=== PATIENT | female | born 1935 | race Caucasian/White ===

== ENCOUNTER 2016-12-27 14:00 | Inpatient (IN) | payer MEDICARE, OTHER ==
[2016-12-27] MEDS ORDERED: SODIUM CHLORIDE 0.9% 10 ML FLUSH FLUSH PRN (15:51)
--- NOTE | 2016-12-27 15:56 | EDPRACDOC ---
- General Information Information Source: Patient Mode Of Arrival: Car - History of Present Illness Onset: 2 DAYS Exact Onset of Symptoms: Unknown HPI: Pt c/o dizziness and imbalance. Family states pt leans to left when walking. Pt states did take meclizine and valium without improvement. Denies fever, earache , sore throat, congestion, cough, cp, sob, abd pain, n/v, changes in bowel or bladder, rash. Symptoms Started: Reports: Suddenly Symptoms Description: Constant Symptoms: Reports: Imbalance, Vertigo Symptom Severity: Reports: Unable to performs ADL's Relevant History of: Denies: O, Anemia, CVA, DM, Electrolyte disorder, GI Bleed , [place], TIA Associated signs and symptoms:: Reports: None <Stephanie Quintana - Last Filed: 12/27/16 17:27> <Nicko Wolf - Last Filed: 12/27/16 17:51> - General Information Chief Complaint: Generalized Weakness Stated Complaint: DIZZY HEADED Time Seen by Provider: 12/27/16 15:45 Home Medications: Home Medications Aspirin [Aspirin EC] 81 mg PO DAILY 08/04/14 Calcium Carbonate/Vitamin D3 [Calcium 600 + Vit D 200 Tablet] 1 tab PO BID 08/04 Multivitamin [Daily Vitamin] 1 tab PO DAILY 08/04/14 Allergies/Adverse Reactions: Allergies Allergy/AdvReac Type Severity Reaction Status Date / Time No Known Allergies Allergy Verified 12/27/16 14:30 ED Past Medical History - History Reviewed Yes Nurses notes reviewed and agree except as marked - Patient Medical History Cardiac History: Reports: Hypertension (denies at this time) GI/ History: Reports: Gastroesophageal Reflux Musculoskeletal History: Reports: Arthritis Systemic History: Denies: Cancer - Family Medical History Reports: Hypertension, Cancer (aunt-breast ca), Cardiac Disorders - Social Medical History Smoking Status: Never smoker ETOH: None Substance Abuse: None <Stephanie Quintana - Last Filed: 12/27/16 17:27> EDM Review of Systems - Review of Systems Constitutional: No Symptoms Reported. negative: Fever, Chills, Weakness, Fatigue, Loss of Appetite Eyes: No Symptoms Reported. negative: Redness, Blurred Vision, Double Vision, Discharge, Pain, Light Sensitive, Photophobia Ears: No Symptoms Reported. negative: Pain, Hearing Loss, Drainage, Ear Pulling Throat: No Symptoms Reported. negative: Pain, Swelling Nose: No Symptoms Reported. negative: Congestion, Bleeding, Discharge, Injection, Swelling, Deformity, Ecchymosis, Tender, Abrasion, Laceration Mouth: No Symptoms Reported. negative: Pain, Drooling Respiratory: No Symptoms Reported. negative: Cough, Brassy Cough, Barky Cough, Shortness of Breath, Wheezing, Hemoptysis Cardiovascular: No Symptoms Reported. negative: Chest Pain, Palpitations, Syncope, Edema, Orthopnea, PND, Skin Mottling, Cyanosis Gastrointestinal: No Symptoms Reported. negative: Pain, Constipation, Nausea, Vomiting, Diarrhea, Melena, Formula Intolerance Genitourinary: No Symptoms Reported. negative: Dysuria, Hematuria, Frequency, Discharge, Bleeding, Testicular Pain, Neurological: Dizziness, Gait Difficulty Musculoskeletal: No Symptoms Reported. negative: Neck, Chestwall, Ribs, Back, Shoulder, Arm, Elbow, Forearm, Wrist, Hand, Pelvis, Hip, Femur, Knee, Leg, Ankle , Foot Integumentary: No Symptoms Reported. negative: Itching, Rash, Bruising, Wound Allergic/Immunologic: No Symptoms Reported. negative: Hives, Itching Hematologic: No Symptoms Reported. negative: Lymphadenopathy, Easy Bruising, Easy Bleeding Psychiatric: No Symptoms Reported. negative: Anxiety, Depression, Hallucinations, Insomnia, Suicidal <Quintana,Stephanie E - Last Filed: 12/27/16 17:27> - Physical Exam Constitutional: Alert Oriented to: Time, Person, Place Last recorded Vital Signs: Last Vital Signs Temp 97.9 F 12/27/16 14:27 Pulse 83 12/27/16 14:27 Resp 20 12/27/16 14:27 BP 170/78 12/27/16 14:27 Pulse Ox 98 12/27/16 14:27 Oxygen Pulse Oxygen Saturation 98 O2 Device Room Air Oxygen Flow Rate Fraction of Inspired Oxygen ( FIO2) - HEENT Head: Normal ( normocephalic) Eye Exam: Normal (PERRL, EOMI, Sclera white) Oropharynx: Normal (Pharynx:Moist without exudate,Gums-no swelling) Tympanic Membrane: Normal ENT EAC: Normal TMJ: Normal Nose: No Symptoms Reported (septum midline) Neck: Normal (FROM, trachea at midline) - Respiratory/Cardiovascular Respiratory: Normal - CTA (BBS clear to auscultation without adventitious sounds ) Cardiovascular: Normal (RRR without murmur, gallop or rub) - GI Auscultation: Normal (NABS) Palpation: Normal (Soft,No rebound or guarding, non distended) Tenderness: Non tender - Musculoskeletal Back: Normal (Non-Tender) Extremities: Normal (Normal tone, Pulses 2+ No cyanosis or edema, FROM) - Integumentary Skin: Normal, Warm, Dry Lymphatics: Normal (no adenopathy) - Neurologic Memory Impaired: Normal Motor Function: Normal (Normal tone, Pulses 2+ No cyanosis or edema, FROM) Cranial Nerve: Normal (CN II-X11 intact sensation, strength 5/5) Cerebellar: Ataxia Mood Description: Normal Thought: Coherent Perception: Normal <Stephanie Quintana - Last Filed: 12/27/16 17:27> - Physical Exam Last recorded Vital Signs: Last Vital Signs Temp 97.9 F 12/27/16 14:27 Pulse 80 12/27/16 16:44 Resp 20 12/27/16 16:44 BP 161/72 12/27/16 16:44 Pulse Ox 97 12/27/16 16:44 Oxygen Pulse Oxygen Saturation 97 O2 Device Room Air Oxygen Flow Rate Fraction of Inspired Oxygen ( FIO2) <Nicko Wolf - Last Filed: 12/27/16 17:51> NIH Stroke Scale Initial Evaluation Level of Consciousness: Alert LOC- Question: Answers Both Correctly LOC Commands: Both Task Correctly Best Gaze: Normal Visual: No Visual Loss Facial Palsy: Normal Movement Motor Arm LEFT: No Drift Motor Arm RIGHT: No Drift Motor Leg LEFT: No Drift Motor Leg RIGHT: No Drift Limb Ataxia: Present in One Limb Sensory: Normal Best Language: No Aphasia Dysarthria: Normal Extinction and Inattention: No Abnormality (Neglect) Score: 1out of42 <Stephanie Quintana - Last Filed: 12/27/16 17:27> - Differential Diagnosis CVA, Dehydration, Dysrhythmia, Electrolyte disorder, TIA, Vertigo - Results 12/27/16 15:55 12/27/16 15:55 12/27/16 16:58 Laboratory Results - last 24 hr 12/27/16 12/27/16 12/27/16 15:55 15:55 15:55 WBC 5.8 RBC 4.10 L Hgb 12.5 Hct 37.5 MCV 92 MCH 30.6 MCHC 33.4 RDW 13.3 Plt Count 285 MPV 7.9 Neut % (Auto) 62.1 Lymph % (Auto) 23.9 [place] % (Auto) 11.7 H Eos % (Auto) 1.7 Baso % (Auto) 0.6 Absolute Neuts (auto) 3.60 Absolute Lymphs (auto) 1.33 PT 10.8 INR 1.1 APTT 26.7 Sodium 144 Potassium 4.0 Chloride 107 Carbon Dioxide 25 Anion Gap 16 BUN 18 H Creatinine 0.70 Estimated GFR (MDRD) > 60 Glucose 113 H Calculated Osmolality 280 Calcium 8.9 Total Bilirubin 0.4 AST 26 ALT 29 Alkaline Phosphatase 76 Troponin I < 0.01 Total Protein 7.3 Albumin 4.2 - EKG EKG #1 EKG Time: 16:54 Rate: bpm: 73 [place]: Normal Rhythm: NSR Block: None ST: Normal Comparison: 08/12/14 (no significant change) - Diagnostic Imaging Head Image interpreted by: Radiologist IMPRESSION: 1. No acute intracranial abnormality. 2. Bilateral lacunar infarcts in the basal ganglia. 3. Atrophy with chronic small vessel white matter ischemic demyelination. Chest Image interpreted by: Radiologist IMPRESSION: No active disease. <Stephanie Quintana E - Last Filed: 12/27/16 17:27> - Re-evaluation Re-evaluation 1 Re-evaluation Time: 17:47 (PATIENT HAS MILD ATAXIA LEFT LEG) - Results 12/27/16 15:55 12/27/16 15:55 WBC 5.8 xk/uL (3.8-10.8) 12/27/16 15:55 RBC 4.10 xM/uL (4.20-5.40) L 12/27/16 15:55 Hgb 12.5 g/dL (12.0-16.0) 12/27/16 15:55 Hct 37.5 % (36-47) 12/27/16 15:55 MCV 92 fL (81-99) 12/27/16 15:55 MCH 30.6 pg (27-32) 12/27/16 15:55 MCHC 33.4 g/dl (33-36) 12/27/16 15:55 RDW 13.3 % (11.5-14.5) 12/27/16 15:55 Plt Count 285 xk/uL (130-400) 12/27/16 15:55 MPV 7.9 fL (7.4-10.4) 12/27/16 15:55 Neut % (Auto) 62.1 % (45-76) 12/27/16 15:55 Lymph % (Auto) 23.9 % (17-44) 12/27/16 15:55 [place] % (Auto) 11.7 % (3-10) H 12/27/16 15:55 Eos % (Auto) 1.7 % (0-5) 12/27/16 15:55 Baso % (Auto) 0.6 % (0-2) 12/27/16 15:55 Absolute Neuts (auto) 3.60 xk/uL (1.7-8.2) 12/27/16 15:55 Absolute Lymphs (auto) 1.33 xk/uL (0.65-4.75) 12/27/16 15:55 PT 10.8 SEC (9.2-11.2) 12/27/16 15:55 INR 1.1 12/27/16 15:55 APTT 26.7 SEC (22-35) 12/27/16 15:55 Sodium 144 mEq/L (137-146) 12/27/16 15:55 Potassium 4.0 mEq/L (3.5-5.1) 12/27/16 15:55 Chloride 107 mEq/L (98-107) 12/27/16 15:55 Carbon Dioxide 25 mMOL/L (22-33) 12/27/16 15:55 Anion Gap 16 mEq/L (8-16) 12/27/16 15:55 BUN 18 MG/DL (7-17) H 12/27/16 15:55 Creatinine 0.70 MG/DL (0.52-1.04) 12/27/16 15:55 Estimated GFR (MDRD) > 60 mL/min (>=60) 12/27/16 15:55 Glucose 113 MG/DL (70-99) H 12/27/16 15:55 Calculated Osmolality 280 MOs/Kg (270-290) 12/27/16 15:55 Calcium 8.9 MG/DL (8.4-10.2) 12/27/16 15:55 Total Bilirubin 0.4 MG/DL (0.2-1.3) 12/27/16 15:55 AST 26 IU/L (14-36) 12/27/16 15:55 ALT 29 IU/L (9-52) 12/27/16 15:55 Alkaline Phosphatase 76 IU/L (55-165) 12/27/16 15:55 Troponin I < 0.01 ng/mL (<.04) 12/27/16 15:55 Total Protein 7.3 G/DL (6.3-8.2) 12/27/16 15:55 Albumin 4.2 G/DL (3.5-5.0) 12/27/16 15:55 Lab Results 12/27/16 12/27/16 12/27/16 15:55 15:55 15:55 WBC 5.8 RBC 4.10 L Hgb 12.5 Hct 37.5 MCV 92 MCH 30.6 MCHC 33.4 RDW 13.3 Plt Count 285 MPV 7.9 Neut % (Auto) 62.1 Lymph % (Auto) 23.9 [place] % (Auto) 11.7 H Eos % (Auto) 1.7 Baso % (Auto) 0.6 Absolute Neuts (auto) 3.60 Absolute Lymphs (auto) 1.33 PT 10.8 INR 1.1 APTT 26.7 Sodium 144 Potassium 4.0 Chloride 107 Carbon Dioxide 25 Anion Gap 16 BUN 18 H Creatinine 0.70 Estimated GFR (MDRD) > 60 Glucose 113 H Calculated Osmolality 280 Calcium 8.9 Total Bilirubin 0.4 AST 26 ALT 29 Alkaline Phosphatase 76 Troponin I < 0.01 Total Protein 7.3 Albumin 4.2 <Nicko Wolf - Last Filed: 12/27/16 17:51> <Stephanie Quintana - Last Filed: 12/27/16 17:27> - Departure Yes I personally saw and evaluated the patient. Disposition: Admit IP To This Hospital Education/Counseling Given To: Patient Education/Counseling Given Regarding: Diagnosis, Treatment, Prognosis Decision to Admit Time: 17:50 Decision to admit date: 12/27/16 Decision to admit: from ED - Physician Consulted Neurology Time Called: 17:51 Provider Called: DR. White ([facility]) Time Rn Internship Returned Call: 17:51 <Wolf,Nicko - Last Filed: 12/27/16 17:51> - Departure Condition: Stable Final Diagnosis: Acute CVA (cerebrovascular accident), Ataxia Instructions: Weakness (General) Referrals: Ravi Parker MD [Primary Care Provider] - One Week Prescriptions: No Action Multivitamin [Daily Vitamin] 1 tab PO DAILY Calcium Carbonate/Vitamin D3 [Calcium 600 + Vit D 200 Tablet] 1 tab PO BID Aspirin [Aspirin EC] 81 mg PO DAILY
[2016-12-27 16:06] LABS: AUTOMATED BASOPHIL 0.6 % (0-2); AUTOMATED EOSINOPHIL 1.7 % (0-5); AUTOMATED LYMPH 23.9 % (17-44); AUTOMATED MONOCYTE 11.7 % (3-10); AUTOMATED NEUTROPHIL 62.1 % (45-76); MPV 7.9 fL (7.4-10.4)
[2016-12-27 16:18] LABS: BLOOD UREA NITROGEN 18 MG/DL (7-17); CALCIUM 8.9 MG/DL (8.4-10.2); CALCULATED OSMOLALITY 280 MOs/Kg (270-290); CHLORIDE 107 mEq/L (98-107); GLUCOSE 113 MG/DL (70-99); SODIUM LEVEL 144 mEq/L (137-146); TOTAL PROTEIN 7.3 G/DL (6.3-8.2)
[2016-12-27 16:20] LABS: PARTIAL THROMB. TIME 26.7 SEC (22-35); PT-INR 1.1
--- NOTE | 2016-12-27 16:41 | DIRPT ---
CLINICAL DATA: Two day history of dizziness and blurry vision. EXAM: CT HEAD WITHOUT CONTRAST TECHNIQUE: Contiguous axial images were obtained from the base of the skull through the vertex without intravenous contrast. COMPARISON: None. FINDINGS: There is no evidence for acute hemorrhage, hydrocephalus, mass lesion, or abnormal extra-axial fluid collection. No definite CT evidence for acute infarction. Diffuse loss of parenchymal volume is consistent with atrophy. Lacunar infarcts identified in the basal ganglia bilaterally. Patchy low attenuation in the deep hemispheric and periventricular white matter is nonspecific, but likely reflects chronic microvascular ischemic demyelination. The visualized paranasal sinuses and mastoid air cells are clear. IMPRESSION: 1. No acute intracranial abnormality. 2. Bilateral lacunar infarcts in the basal ganglia. 3. Atrophy with chronic small vessel white matter ischemic demyelination. Electronically Signed By: Wesly Ronquillo M.D. On: 12/27/2016 16:38
--- NOTE | 2016-12-27 16:58 | DIRPT ---
CLINICAL DATA: Dizziness beginning last night. EXAM: PORTABLE CHEST 1 VIEW COMPARISON: 08/12/2014 FINDINGS: Artifact overlies chest. Heart size is normal. Mediastinal shadows are normal. There is mild scarring at the lung bases. No evidence of infiltrate, mass, effusion or collapse. No significant bone finding. IMPRESSION: No active disease. Electronically Signed By: Aleks Rodriguez M.D. On: 12/27/2016 16:56
--- NOTE | 2016-12-27 18:31 | HISTPHYS ---
- Chief Complaint dizzy, leaning to left side, difficulty walking - History of Present Illness PRIMARY CARE PROVIDER: Dr. Parker HPI: The patient is a delightful and remarkably healthy 81 yo woman who presents with difficulty walking. Yesterday she felt lightheaded and dizzy, and it continued to today. She took one of her 's pills but it did not help. She noticed that she kept leaning to the left side. Sh could not walk right; it was a balance problem. If she turned her head quickly she felt more dizzy. Her daughter said the patient would start walking then suddenly lean to the side the left side. Onset: yesterday. Duration: intermittent. Location: left side. Radiation: none. Character: balance disorder and leaning to left. Alleviated by: Nothing. Exacerbated by: Nothing. Associated Symptoms: No headache, numbness, or weakness. No slurred speech or confusion. No eye complaints. No difficulty swallowing. Treatments: none at home except usual medications. She took meclizine x1 and lorazepam x 1 of her 's. - Medical History GI/ History: Reports: Gastroesophageal Reflux Musculoskeletal History: Reports: Arthritis Reports: claustrophobic. - Surgical History Reports: Other (2 knee replacements. Left carpal tunnel.) - Medictions/Allergies Allergies No Known Allergies Allergy (Verified 12/27/16 14:30) PER KATIA IN [facility] [place], [place] Current Medication List: Reviewed Home Medications Aspirin [Aspirin EC] 81 mg PO DAILY 08/04/14 Calcium Carbonate/Vitamin D3 [Calcium 600 + Vit D 200 Tablet] 1 tab PO BID 08/04 Multivitamin [Daily Vitamin] 1 tab PO DAILY 08/04/14 - Family History Reports: Hypertension, Diabetes (Mild DM in mother.), Cancer (Aunt-breast ca), Cardiac Disorders (Mother: SC and CHF but lived to 95yo. Father: aortic aneurysm rupture @70yo) - Social History Lives: with Spouse Smoking Status: Never smoker Social History: Denies: Alcohol Use, Substance Use Disorder - Review of Systems GENERAL: No Fever, chills, or diaphoresis. Positive for fatigue/malaise. HEENT: No ear pain or discharge. No nasal discharge or bleeding. No throat pain or swelling. No eye pain or eye redness. RESPIRATORY: No cough, wheezing, or shortness of breath. CARDIOVASCULAR: No chest pain or palpitations. GI: No abdominal pain, nausea, vomiting, diarrhea, constipation, or bloody stool. NEUROLOGICAL: No headache or focal weakness. INTEGUMENT: no rashes, itching, or lesions. LYMPHATIC SYSTEM: no lymph node swelling or pain. MUSCULOSKELETAL: no pain or joint swelling. GENITOURINARY: No dysuria or hematuria. ENDOCRINE: No polyuria or polydipsia. HEME: No chronic anemia, bleeding, or easy bruising. - Physical Exam Vital Signs: Initial Vitals Temperature 97.9 F 12/27/16 14:27 Pulse Rate 83 12/27/16 14:27 Respiratory Rate 20 12/27/16 14:27 Blood Pressure 170/78 12/27/16 14:27 Pulse Oxygen Saturation 98 12/27/16 14:27 Vital Signs - 24 hr 12/27/16 12/27/16 12/27/16 14:27 15:22 15:43 Temperature 97.9 F Pulse Rate 83 71 80 Respiratory 20 20 20 Rate Blood Pressure 170/78 138/83 138/70 Pulse Oxygen 98 97 97 Saturation 12/27/16 16:44 Temperature Pulse Rate 80 Respiratory 20 Rate Blood Pressure 161/72 Pulse Oxygen 97 Saturation Weight: 61.7 kg Height: 5 feet 4 inches BMI: 23.3 - Other Exam Other Exam Findings: GENERAL: Mildly ill-appearing, well nourished, no acute distress. HEENT: Normocephalic, atraumatic; pupils equal and round. Nares patent, without discharge or bleeding. No oropharyngeal lesions or erythema. Mucous membranes are dry. NECK: is supple, no masses, trachea midline. RESPIRATORY: Clear to auscultation bilaterally. Chest wall movements are symmetric. No use of accessory muscles to breathe. No wheezing, rales, rhonchi. CARDIOVASCULAR: Normal S1, S2. No murmurs, rubs, or gallops. PMI non-displaced. Carotids: no carotid bruits. No bradycardia or tachycardia. DP pulses 2+ bilaterally. GI: soft, nontender, non-distended, normal active bowel sounds. No hepatosplenomegaly. INTEGUMENT: Clean, dry, and intact. No rashes. No lesions. MUSCULOSKELETAL: Moving all extremities. No cyanosis. No clubbing. Edema: none bilaterally. NEUROLOGICAL: Cranial nerves 2-12 grossly intact. Motor 5/5 throughout. Reflexes : 2+ bilaterally. Babinski: toes downgoing bilaterally. Intact Finger to nose. Sensory grossly intact to light touch. Intact rapid alternating movements bilaterally. No pronator drift. Negative Romberg. Observed patient walking: minimal unsteadiness. PSYCHIATRIC: Fully oriented. Normal and appropriate affect. LYMPHATIC: No cervical lymphadenopathy. No supraclavicular lymphadenopathy. - Lab Results Laboratory Results - last 24 hr 12/27/16 12/27/16 12/27/16 15:55 15:55 15:55 WBC 5.8 RBC 4.10 L Hgb 12.5 Hct 37.5 MCV 92 MCH 30.6 MCHC 33.4 RDW 13.3 Plt Count 285 MPV 7.9 Neut % (Auto) 62.1 Lymph % (Auto) 23.9 [place] % (Auto) 11.7 H Eos % (Auto) 1.7 Baso % (Auto) 0.6 Absolute Neuts (auto) 3.60 Absolute Lymphs (auto) 1.33 PT 10.8 INR 1.1 APTT 26.7 Sodium 144 Potassium 4.0 Chloride 107 Carbon Dioxide 25 Anion Gap 16 BUN 18 H Creatinine 0.70 Estimated GFR (MDRD) > 60 Glucose 113 H Calculated Osmolality 280 Calcium 8.9 Total Bilirubin 0.4 AST 26 ALT 29 Alkaline Phosphatase 76 Troponin I < 0.01 Total Protein 7.3 Albumin 4.2 - Diagnostic Findings EK bpm. Normal sinus rhythm. Reviewed EKG personally. Chest x-ray, viewed personally: EXAM: PORTABLE CHEST 1 VIEW COMPARISON: 08/12/2014 FINDINGS: Artifact overlies chest. Heart size is normal. Mediastinal shadows are normal. There is mild scarring at the lung bases. No evidence of infiltrate, mass, effusion or collapse. No significant bone finding. IMPRESSION: No active disease. Head CT: EXAM: CT HEAD WITHOUT CONTRAST TECHNIQUE: Contiguous axial images were obtained from the base of the skull through the vertex without intravenous contrast. COMPARISON: None. FINDINGS: There is no evidence for acute hemorrhage, hydrocephalus, mass lesion, or abnormal extra-axial fluid collection. No definite CT evidence for acute infarction. Diffuse loss of parenchymal volume is consistent with atrophy. Lacunar infarcts identified in the basal ganglia bilaterally. Patchy low attenuation in the deep hemispheric and periventricular white matter is nonspecific, but likely reflects chronic microvascular ischemic demyelination. The visualized paranasal sinuses and mastoid air cells are clear. IMPRESSION: 1. No acute intracranial abnormality. 2. Bilateral lacunar infarcts in the basal ganglia. 3. Atrophy with chronic small vessel white matter ischemic demyelination. - Assessment (1) Acute CVA (cerebrovascular accident) I63.9 - CEREBRAL INFARCTION, UNSPECIFIED Acute Present on Admission: Yes Plan: CVA order set. MRI head and Ultrasound of carotids in the AM. NPO until speech therapy evaluation. Physical therapy and occupational therapy evaluations. Neuro checks q 4 hours. Telemetry. Patient was taking daily aspirin, so will change to Plavix in the AM. Add statin. Check lipid levels. NOTE: TPA NOT GIVEN. NO TPA DUE TO: Patient outside of time window. (2) Ataxia R27.0 - ATAXIA, UNSPECIFIED Acute Present on Admission: Yes May be due to CVA. Plan: Neuro checks. PT eval and treat. (3) Elevated blood pressure reading R03.0 - ELEVATED BLOOD-PRESSURE READING, W/O DIAGNOSIS OF HTN Acute Present on Admission: Yes May be acute and related to CVA. Could also be chronic with patient unaware she had hypertension. Plan: Due to acute CVA, will not treat BP unless SBP is greater than 190 during initial phase. Follow-up as an outpatient for blood pressure rechecks. Would consider adding antihypertensives at that time. (4) Dizziness R42 - DIZZINESS AND GIDDINESS Acute Present on Admission: Yes May be due to CVA. If not, consider other causes. Plan: CVA workup. Meclizine prn. NIH Stroke Scale Initial Evaluation Level of Consciousness: Alert LOC- Question: Answers Both Correctly LOC Commands: Both Task Correctly Best Gaze: Normal Visual: No Visual Loss Facial Palsy: Normal Movement Motor Arm LEFT: No Drift Motor Arm RIGHT: No Drift Motor Leg LEFT: No Drift Motor Leg RIGHT: No Drift Limb Ataxia: Present in One Limb (Left Leg, mild) Sensory: Normal Best Language: No Aphasia Dysarthria: Normal Extinction and Inattention: No Abnormality (Neglect) Score: 1out of42
[2016-12-27] MEDS ORDERED: SENNA CONCENTRATE TAB PO PRN (20:40)
[2016-12-27] MEDS ORDERED: ONDANSETRON HCL 4 MG/2 ML VIAL IV PRN (20:40)
[2016-12-27] MEDS ORDERED: TEMAZEPAM 15 MG CAP PO PRN (20:40)
[2016-12-27] MEDS ORDERED: BENZONATATE 100 MG PERLES PO PRN (20:40)
[2016-12-27] MEDS ORDERED: Aluminum;Magnesium;Simethicone 30 ML UDC PO PRN (20:40)
[2016-12-27] MEDS ORDERED: PROMETHAZINE 25 MG/ML VIAL IV PRN (20:40)
[2016-12-27] MEDS ORDERED: BISACODYL 5 MG TAB PO PRN (20:40)
[2016-12-27] MEDS ORDERED: ACETAMINOPHEN 325 MG SUPP PR PRN (20:40)
[2016-12-27] MEDS ORDERED: GUAIFEN 100 MG-DEXTROMETH 10 MG PER 5 ML PO PRN (20:40)
[2016-12-27] MEDS ORDERED: ACETAMINOPHEN 325 MG/TAB TABLET PO PRN (20:40)
[2016-12-27] MEDS ORDERED: LORAZEPAM 2 MG/ML VIAL IV PRN (20:49)
[2016-12-27] MEDS ORDERED: Vaccine Screening Complete SCH (21:00)
[2016-12-27] MEDS: ATORVASTATIN 40 MG TAB PO SCH (21:04)
[2016-12-27] MEDS: ENOXAPARIN 40 MG/0.4 ML PFS SQ SCH (21:23)
[2016-12-27] MEDS: NS 1,000 ML IV SCH (21:23)
[2016-12-28 04:21] VITALS: BMI 22.8
[2016-12-28 04:55] LABS: MPV 8.1 fL (7.4-10.4)
[2016-12-28] MEDS ORDERED: DOCUSATE SODIUM 50 MG PO SCH (09:00)
[2016-12-28] MEDS ORDERED: MULTIVITAMIN PO SCH (09:00)
[2016-12-28] MEDS ORDERED: MECLIZINE 12.5 MG TAB PO PRN (10:00)
[2016-12-28] MEDS ORDERED: [UNRECOGNIZED DRUG - OTHER] PO SCH (10:00)
[2016-12-28] MEDS ORDERED: VITAMIN D3 PO SCH (10:00)
[2016-12-28] MEDS ORDERED: CALCIUM CARBONATE PO SCH (10:00)
[2016-12-28] MEDS: Docusate Sodium 100 MG CAP PO SCH (10:31)
[2016-12-28] MEDS: CLOPIDOGREL 75 MG TAB PO SCH (10:31)
[2016-12-28] MEDS: CALCIUM CARBONATE + VITAMIN D 500 MG TAB PO SCH ×2 (10:31→20:41)
[2016-12-28] MEDS: VITAMINS, MULTIPLE CAP PO SCH (10:31)
[2016-12-28] MEDS: NS 1,000 ML IV SCH (10:32)
--- NOTE | 2016-12-28 12:06 | DIRPT ---
ADDENDUM REPORT: 12/28/2016 16:13 ADDENDUM: These results were discussed by telephone with Dr. Lewis on 12/28/2016 at 3:00 p.m. Electronically Signed By: Tae Martínez M.D. On: 12/28/2016 16:13 CLINICAL DATA: Ischemic stroke. Dizziness beginning 2 days ago. EXAM: MRI HEAD WITHOUT AND WITH CONTRAST TECHNIQUE: Multiplanar, multiecho pulse sequences of the brain and surrounding structures were obtained without and with intravenous contrast. CONTRAST: 10 mL MultiHance COMPARISON: Head CT 12/27/2016 FINDINGS: The pituitary gland is mildly enlarged for age, measuring 8-9 mm in height. There is mild slumping of the brainstem without cerebellar tonsillar herniation. Trace bilateral subdural fluid effusions and diffuse smooth pachymeningeal enhancement are present both supratentorially and infratentorially. There is mild distension/rounding of the contour of the right transverse sinus. There is no evidence of acute infarct, intracranial hemorrhage, mass, or midline shift. Ventricles and sulci are within normal limits for age. Patchy T2 hyperintensities in the subcortical and deep cerebral white matter and rashawn are nonspecific but compatible with moderate chronic small vessel ischemic disease. A subcentimeter T2 hyperintense focus at the inferior left basal ganglia may represent a dilated perivascular space or less likely chronic lacunar infarct. No abnormal brain parenchymal enhancement is identified. Orbits are unremarkable. Paranasal sinuses and mastoid air cells are clear. Major intracranial vascular flow voids are preserved. IMPRESSION: 1. Overall constellation of findings highly suggestive of intracranial hypotension. Suggest correlation with LP opening pressure. 2. No acute infarct or mass. 3. Moderate chronic small vessel ischemic disease. Electronically Signed: By: Tae Martínez M.D. On: 12/28/2016 12:04
--- NOTE | 2016-12-28 12:49 | DIRPT ---
CLINICAL DATA: 81-year-old female with stroke-like symptoms (dizziness, blurred vision). EXAM: BILATERAL CAROTID DUPLEX ULTRASOUND TECHNIQUE: Bray scale imaging, color Doppler and duplex ultrasound were performed of bilateral carotid and vertebral arteries in the neck. COMPARISON: Brain MRI 12/28/2016; Prior thyroid ultrasound 05/02/2015 FINDINGS: Criteria: Quantification of carotid stenosis is based on velocity parameters that correlate the residual internal carotid diameter with NASCET-based stenosis levels, using the diameter of the distal internal carotid lumen as the denominator for stenosis measurement. The following velocity measurements were obtained: RIGHT ICA: 94/32 cm/sec CCA: 73/23 cm/sec SYSTOLIC ICA/CCA RATIO: 1.3 DIASTOLIC ICA/CCA RATIO: 1.4 ECA: 84 cm/sec LEFT ICA: 91/30 cm/sec CCA: 79/23 cm/sec SYSTOLIC ICA/CCA RATIO: 1.2 DIASTOLIC ICA/CCA RATIO: 1.3 ECA: 69 cm/sec RIGHT CAROTID ARTERY: No evidence of significant atherosclerotic plaque or stenosis. RIGHT VERTEBRAL ARTERY: Patent with normal antegrade flow. LEFT CAROTID ARTERY: No focal stenosis scratch then no significant atherosclerotic plaque or evidence of stenosis. LEFT VERTEBRAL ARTERY: Patent with normal antegrade flow. IMPRESSION: Negative bilateral carotid duplex ultrasound. Signed, Jewel Hernandez MD [facility] Electronically Signed By: Jewel Hernandez M.D. On: 12/28/2016 12:46
[2016-12-28] MEDS: ENOXAPARIN 40 MG/0.4 ML PFS SQ SCH (16:16)
[2016-12-28] MEDS: ATORVASTATIN 40 MG TAB PO SCH (16:16)
--- NOTE | 2016-12-28 16:41 | GENMEDPROG ---
Chief Complaint: Feels a little better today. Still some dizziness and generalized weakness. Notes Reviewed: Yes Events from last night noted and discussed with Clinical Staff Current Medication List: Reviewed Currently: Denies: Cough, Wheezing, SCHWAB, SOB, Sputum, Nausea and Vomiting, Abdominal Pain - Physical Examination Vital Signs and I&O: Last Vital Signs Temp 97.7 F 12/28/16 16:13 Pulse 80 12/28/16 16:13 Resp 18 12/28/16 16:13 BP 131/67 12/28/16 16:13 Pulse Ox 96 12/28/16 16:13 Oxygen Pulse Oxygen Saturation 96 O2 Device Room Air Oxygen Flow Rate Fraction of Inspired Oxygen ( FIO2) Intake & Output 12/25/16 12/26/16 12/27/16 12/28/16 23:59 23:59 23:59 23:59 Intake Total 1786 Output Total 1500 Balance 286 Patient's weight 60.509 kg General: Alert, Oriented x3, Cooperative, No acute distress, Well appearing, Well nourished HEENT: Normal, PERRLA, EOMI, Anicteric Sclera Neck: Non-tender, Full range of motion. negative: JVD Lymphatics: Normal (no adenopathy) Respiratory: Normal - CTA (BBS clear to auscultation without adventitious sounds ) Cardiovascular: Regular rate and rhythm, No Gallops,Rubs/Murmurs GI: Normal bowel sounds, Soft, Non tender, No hepatospenomegaly Extremities/Musculoskeletal: Normal pulses. negative: Tenderness, Swelling, Edema Skin: Warm,Dry and Intact, No rashes, No breakdown Neurological: Normal speech, Strength at 5/5 X4 ext, Normal tone, Cranial nerves 3-12 NL Psych/Mental Status: Appropriate, Normal Affect, Cooperative Lab/DI/Studies Reviewed: Laboratory Results - last 24 hr 12/27/16 12/27/16 12/28/16 19:20 21:40 04:25 WBC 5.5 RBC 3.78 L Hgb 11.7 L Hct 34.6 L MCV 92 MCH 31.0 MCHC 33.9 RDW 13.7 Plt Count 276 MPV 8.1 Troponin I < 0.01 < 0.01 - Assessment (1) Acute CVA (cerebrovascular accident) Acute I63.9 - CEREBRAL INFARCTION, UNSPECIFIED Comment/Plan: MRI with no clear evidence of stroke. However constellation of findings on MRI are consistent with intracranial hypotension. She has not had any recent instrumentation of her back though she did have what sounds like an epidural injection in September of 2015. Discussed with Radiology and recommendation is for LP however patient is currently on aspirin, Plavix and Lovenox and would not be able to get LP for 5 days. Have asked Neurology to see in consultation for further recommendations of evaluation and management (2) Ataxia Acute R27.0 - ATAXIA, UNSPECIFIED Comment/Plan: As above. Physical therapy and supportive care. (3) Dizziness Acute R42 - DIZZINESS AND GIDDINESS Comment/Plan: She took some of her 's meclizine with little relief of symptoms. Suspect due to above issues. Have asked Neurology to see in consultation (4) Elevated blood pressure reading Acute R03.0 - ELEVATED BLOOD-PRESSURE READING, W/O DIAGNOSIS OF HTN Comment/ Plan: Blood pressure is stable this afternoon. Continue to monitor. Case Care Discussed with: Patient, Family, Nursing Staff, Physical Therapy, Resource Management
--- NOTE | 2016-12-28 22:53 | PCM.NEUCO ---
Consultation Date: 12/28/16 Requesting Physician: Racquel Ramey Consulting Doctor: Ronaldo Lewis Reason For Consult: Other-specify below (Dizziness, Ataxia) 81 y.o. female admitted on 12/27/16 with c/o dizziness and balance difficulty. Patient reports having a sudden onset of dizziness on 12/26/16. She describes the dizziness as a spinning sensation. The dizziness only occurred with standing. It would resolve with rest/sitting. She had difficulty ambulating due to the dizziness. She denies having any associated headache, nausea, tinnitus, hearing loss, or ear pain. She took some of her spouse's Meclizine and Valium but neither helped. Yesterday her daughter insisted that she come to the ED for evaluation. A CT of her head was negative for any acute findings. [employer] PERSON she took a low dose ASA daily. Plavix was added yesterday. Today a MRI of her brain showed findings highly suggestive of intracranial hypotension. It was suggested by radiology to have a LP. Unfortunately patient is unable to have LP for 5 days due to Plavix and Lovenox. Today patient denies having any dizziness except with ambulation. Per physical therapy evaluation patient did not have any nystagmus or dizziness related to head movement or position change. - Past Medical and Surgical History Cardiac History: Denies: Hypertension (denies at this time) GI/ History: Reports: Gastroesophageal Reflux Systemic History: Denies: Cancer Musculoskeletal History: Reports: Arthritis Psychological History: Denies: Depression, Alcoholism, Substance Use Disorder Neurological History: Reports: Cerebrovascular Accident (OLD CVA NOTED ON CT) Past Surgical History: Reports: Other (2 knee replacements. Left carpal tunnel.) . Denies: Tonsillectomy/Adnoidectomy Allergies No Known Allergies Allergy (Verified 12/27/16 14:30) PER KATIA IN [facility] [place] Home Medications Aspirin [Aspirin EC] 81 mg PO DAILY 08/04/14 Calcium Carbonate/Vitamin D3 [Calcium 600 + Vit D 200 Tablet] 1 tab PO BID 08/04 Multivitamin [Daily Vitamin] 1 tab PO DAILY 08/04/14 Docusate Sodium [Stool Softener] 50 mg PO DAILY 12/27/16 - Social History Travel Outside of [place] in the Last 3 Months?: No Lives: with Spouse Smoking Status: Never smoker Social History: Denies: Alcohol Use, Substance Use Disorder - Family History Reports: Hypertension, Diabetes (Mild DM in mother.), Cancer (Aunt-breast ca), Stroke (AUNT), Cardiac Disorders (Mother: PA and CHF but lived to 95yo. Father: aortic aneurysm rupture @70yo) - Review of Systems Constitutional: No Symptoms Reported (Negative for weakness) Eyes: No Symptoms Reported (Negative for visual changes), Uses Glasses/Contact lenses Ears: No Symptoms Reported Throat/Neck: No Symptoms Reported (Denies neck pain) Cardiovascular: No Symptoms Reported (Denies CP) Gastrointestinal: No Symptoms Reported (Denies nausea) Genitourinary: No Symptoms Reported (Negative for urinary complaints) Neurological: Dizziness, Gait Difficulty Musculoskeletal:: No Symptoms Reported (Denies current back pain) Integumentary: No Symptoms Reported (Negative for bruising) Psychiatric: No Symptoms Reported (Negative for sleeping difficulty) - Physical Exam Vital Signs: Initial Vitals Temperature 97.9 F 12/27/16 14:27 Pulse Rate 83 12/27/16 14:27 Respiratory Rate 20 12/27/16 14:27 Blood Pressure 170/78 12/27/16 14:27 Pulse Oxygen Saturation 98 12/27/16 14:27 Selected Entries 12/28/16 20:00 Temperature 98.2 F Pulse Rate 79 Respiratory 18 Rate Blood Pressure 133/63 Constitutional: No apparent distress, Alert Oriented to: Time, Person, Place - HEENT Head: Normal - Integumentary Skin: Normal - Mental Status Orientation: Time, Person, Place Speech: Fluent Coginitive: Normal Motor Function: Normal (Strength 5/5 in BUE/BLE) Affect: Normal Thought: Coherent Perception: Normal - Sensory Sensory: Normal (Intact to light touch and pain in all extremities) - Reflex Babinski Reflex Response: Absent Bilateral Reflexes: Absent 0: Left Patellar, Right Patellar, Left Achilles, Right Achilles , Diminished 1+: Right Bicep, Left Bicep, Left Tricep, Right Tricep, Left Brachioradialis, Right Brachioradialis - Coordination Finger to Nose Test: Normal Performance Hand Tapping Test: Normal Performance - Other Exam Other Exam Findings: CN II-XII: Equal pupil size and reaction. Fundi not visualized. EOMI with no nystagmus. VF full to confrontation. Hearing appears normal. Normal facial strength and sensation. Normal shoulder shrug and tongue protrusion. MIRIAM with no nystagmus. - Lab Results Laboratory Tests 12/27/16 12/27/16 12/28/16 15:55 15:55 04:25 WBC 5.5 Hgb 11.7 L Hct 34.6 L PT 10.8 INR 1.1 APTT 26.7 Sodium 144 Potassium 4.0 BUN 18 H Creatinine 0.70 Glucose 113 H - Diagnostic Findings EXAM: CT HEAD WITHOUT CONTRAST COMPARISON: None. FINDINGS: There is no evidence for acute hemorrhage, hydrocephalus, mass lesion, or abnormal extra-axial fluid collection. No definite CT evidence for acute infarction. Diffuse loss of parenchymal volume is consistent with atrophy. Lacunar infarcts identified in the basal ganglia bilaterally. Patchy low attenuation in the deep hemispheric and periventricular white matter is nonspecific, but likely reflects chronic microvascular ischemic demyelination. The visualized paranasal sinuses and mastoid air cells are clear. IMPRESSION: 1. No acute intracranial abnormality. 2. Bilateral lacunar infarcts in the basal ganglia. 3. Atrophy with chronic small vessel white matter ischemic demyelination. EXAM: MRI HEAD WITHOUT AND WITH CONTRAST COMPARISON: Head CT 12/27/2016 FINDINGS: The pituitary gland is mildly enlarged for age, measuring 8-9 mm in height. There is mild slumping of the brainstem without cerebellar tonsillar herniation. Trace bilateral subdural fluid effusions and diffuse smooth pachymeningeal enhancement are present both supratentorially and infratentorially. There is mild distension/rounding of the contour of the right transverse sinus. There is no evidence of acute infarct, intracranial hemorrhage, mass, or midline shift. Ventricles and sulci are within normal limits for age. Patchy T2 hyperintensities in the subcortical and deep cerebral white matter and rashawn are nonspecific but compatible with moderate chronic small vessel ischemic disease. A subcentimeter T2 hyperintense focus at the inferior left basal ganglia may represent a dilated perivascular space or less likely chronic lacunar infarct. No abnormal brain parenchymal enhancement is identified. Orbits are unremarkable. Paranasal sinuses and mastoid air cells are clear. Major intracranial vascular flow voids are preserved. IMPRESSION: 1. Overall constellation of findings highly suggestive of intracranial hypotension. Suggest correlation with LP opening pressure. 2. No acute infarct or mass. 3. Moderate chronic small vessel ischemic disease. EXAM: BILATERAL CAROTID DUPLEX ULTRASOUND IMPRESSION: Negative bilateral carotid duplex ultrasound. - Assessment/Plan (1) Dizziness R42 - DIZZINESS AND GIDDINESS Acute Present on Admission: Yes Comment: Patient admitted with c/o dizziness and ataxia. The MRI of her brain was negative for any acute infarction but did show findings highly suggestive of intracranial hypotension. Patient denies having any headache other than when she was NPO prior to ST evaluation. She did experience some right radicular back pain several weeks ago which resolved with conservative treatment. Her only history of dural puncture was spinal anesthesia for TKA in 09/2015. She denies any recent trauma or overexertion. Radiology suggested LP but patient unable to have unless off of Plavix, ASA, and Lovenox for 5 days. Patient reports dizziness only occurs with ambulation but has improved. Recommend continue physical therapy for balance. Patient's dizziness showed no improvement with Meclizine or Valium but could retry if needed. Dr. Garland to review MRI findings. Case Care Discussed with: Patient
[2016-12-29 05:51] LABS: AUTOMATED BASOPHIL 0.4 % (0-2); AUTOMATED EOSINOPHIL 2.7 % (0-5); AUTOMATED LYMPH 21.2 % (17-44); AUTOMATED NEUTROPHIL 63.7 % (45-76); MPV 8.2 fL (7.4-10.4)
[2016-12-29] MEDS: NS 1,000 ML IV SCH ×2 (06:16)
[2016-12-29 06:35] LABS: BLOOD UREA NITROGEN 16 MG/DL (7-17); CALCIUM 9.3 MG/DL (8.4-10.2); CALCULATED OSMOLALITY 268 MOs/Kg (270-290); CHLORIDE 106 mEq/L (98-107); GLUCOSE 89 MG/DL (70-99); SODIUM LEVEL 139 mEq/L (137-146)
[2016-12-29] MEDS: VITAMINS, MULTIPLE CAP PO SCH (08:27)
[2016-12-29] MEDS: CALCIUM CARBONATE + VITAMIN D 500 MG TAB PO SCH (08:27)
[2016-12-29] MEDS: Docusate Sodium 100 MG CAP PO SCH (08:27)
[2016-12-29] MEDS: CLOPIDOGREL 75 MG TAB PO SCH (08:27)
--- NOTE | 2016-12-29 11:20 | PCM.DCS92 ---
- Final/Secondary Discharge Diagnosis (1) Acute CVA (cerebrovascular accident) Acute I63.9 - CEREBRAL INFARCTION, UNSPECIFIED Present on Admission: Yes Comment: MRI with no clear evidence of stroke. However constellation of findings on MRI are consistent with intracranial hypotension. She has not had any recent instrumentation of her back though she did have what sounds like an epidural injection in September of 2015. Discussed with Radiology and recommendation is for LP however patient is currently on aspirin, Plavix and Lovenox and would not be able to get LP for 5 days. Have asked Neurology to see in consultation for further recommendations of evaluation and management (2) Ataxia Acute R27.0 - ATAXIA, UNSPECIFIED Present on Admission: Yes Comment: As above. Physical therapy and supportive care. (3) Dizziness Acute R42 - DIZZINESS AND GIDDINESS Present on Admission: Yes Comment: She took some of her 's meclizine with little relief of symptoms. Suspect due to above issues. Have asked Neurology to see in consultation (4) Elevated blood pressure reading Acute R03.0 - ELEVATED BLOOD-PRESSURE READING, W/O DIAGNOSIS OF HTN Present on Admission: Yes Comment: Blood pressure is stable this afternoon. Continue to monitor. Discharge Disposition: Discharge w/ Home Health (outpatient physical therapy) Discharge Condition: Stable Cognitive Discharge Status: Unimpaired Fuctional Discharge Status: Walker Assistance Physician Follow up/Referrals: Ravi Parker MD [Primary Care Provider] - One Week Godwin Garland MD [Staff Physician] - 1-2 weeks Home Medications / New Prescriptions: New Lorazepam [Ativan] 0.5 mg PO Q8H PRN #20 tablet PRN Reason: Dizziness Meclizine HCl [Motion Sickness] 25 mg PO Q6H PRN #20 tablet PRN Reason: Dizziness Continue Multivitamin [Daily Vitamin] 1 tab PO DAILY Calcium Carbonate/Vitamin D3 [Calcium 600-Vit D3 200 Tablet] 1 tab PO BID Aspirin [Aspirin EC] 81 mg PO DAILY Docusate Sodium [Stool Softener] 50 mg PO DAILY Discharge Home Medication List Aspirin [Aspirin EC] 81 mg PO DAILY 08/04/14 [History Confirmed 12/27/16 Last Taken 12/26/16] Calcium Carbonate/Vitamin D3 [Calcium 600-Vit D3 200 Tablet] 1 tab PO BID [History Confirmed 12/27/16 Last Taken 12/26/16] Multivitamin [Daily Vitamin] 1 tab PO DAILY 08/04/14 [History Confirmed Last Taken 12/26/16] Docusate Sodium [Stool Softener] 50 mg PO DAILY 12/27/16 [History Confirmed Last Taken 12/26/16 20:00] Lorazepam [Ativan] 0.5 mg PO Q8H PRN #20 tablet 12/29/16 [Rx Last Taken Unknown] Meclizine HCl [Motion Sickness] 25 mg PO Q6H PRN #20 tablet 12/29/16 [Rx Last Taken Unknown] O2 Device: Room Air Diet at Discharge: Heart Healthy Activity: As Tolerated Call Office For: Worsening Symptoms - DC Summary Notes Hospital Course Note:: Discharge summary on patient named SHARAN HERNANDEZ admitted to [facility] on 12/27/16 by Reddy Longoria MD. Date of discharge is []. Total Time: 45 minutes - Physical Exam Vital Signs: Last Vital Signs Temp 98.3 F 12/29/16 08:29 Pulse 78 12/29/16 10:00 Resp 18 12/29/16 08:29 BP 182/86 H 12/29/16 08:29 Pulse Ox 96 12/29/16 08:29 Oxygen Pulse Oxygen Saturation 96 O2 Device Room Air Oxygen Flow Rate Fraction of Inspired Oxygen ( FIO2) Constitutional: No apparent distress, Alert, Well nourished, Well appearing Oriented to: Time, Person, Place - HEENT Head: Normal - Respiratory/Cardiovascular Respiratory: Normal - CTA (BBS clear to auscultation without adventitious sounds ) Cardiovascular: Normal - GI Auscultation: Normal (NABS) Palpation: Normal (Soft,No rebound or guarding, non distended) Tenderness: Non tender - Musculoskeletal Back: Normal (Non-Tender) Extremities: Normal (Normal tone, Pulses 2+ No cyanosis or edema, FROM) - Integumentary Skin: Normal Lymphatics: Normal - Neurologic Memory Impaired: Normal Motor Function: Normal Cranial Nerve: Normal Cerebellar: Normal Mood Description: Normal Thought: Coherent Perception: Normal
[2016-12-29 11:44] VITALS: BP 171/80; PULSE 83; TEMP 98.1
== END 2016-12-29 13:43 | disposition home or self-care (01) | DRG 66 ==
LOC: ED 14:00 → PCU 18:22
PROVIDERS: ADMIT Internal Medicine; ATTEND Hospitalist
DX: I63.9 Cerebral infarction, unspecified (principal); K21.9 Gastro-esophageal reflux disease without esophagitis; R27.8 Other lack of coordination; R29.701 NIHSS score 1; R03.0 Elevated blood-pressure reading, without diagnosis of hypertension; M19.90 Unspecified osteoarthritis, unspecified site; Z79.899 Other long term (current) drug therapy; Z79.82 Long term (current) use of aspirin; Z86.73 Personal history of transient ischemic attack (TIA), and cerebral infarction without residual deficits
CPT/HCPCS: 36415; 70450; 70553; 71010; 80048; 80053; 84484; 85025; 85027; 85610; 85730; 93005; 93880; 96372; 97165; 99285; A9577; J1650; J2060; J3490